=== PATIENT | male | born 1995 | race Asian ===

== ENCOUNTER 2018-09-12 14:11 | Emergency (ER) | payer OTHER ==
--- NOTE | 2018-09-12 14:51 | EDPHY ---
H & P Stated Complaint: 4 days HAHN, behind left ear Time Seen by Provider: 09/12/18 14:48 - Personal History Current Tetanus Diphtheria and Acellular Pertussis (TDAP): Yes - Medical/Surgical History Hx Asthma: No Hx Chronic Respiratory Disease: No Hx Diabetes: No Hx Cardiac Disease: No Hx Renal Disease: No Hx Cirrhosis: No Hx Alcoholism: No Hx HIV/AIDS: No Hx Splenectomy or Spleen Trauma: No Other PMH: none - Social History Smoking Status: Light smoker Constitutional: Initial Vital Signs Temperature (C) 36.4 C 09/12/18 14:15 Heart Rate 83 09/12/18 14:15 Respiratory Rate 20 09/12/18 14:15 Blood Pressure 128/88 H 09/12/18 14:15 O2 Sat (%) 100 09/12/18 14:15 O2 Delivery Mode Room Air O2 (L/minute) 2 Allergies/Adverse Reactions: cephalexin Allergy (Verified 09/12/18 14:18) Home Medications: Medication Instructions Recorded NK [No Known Home Meds] 09/12/18 Medical Decision Making - Diagnostics Imaging Results: Imaging Impressions Head CT 09/12/18 14:53 Impression: Normal CT of the head. Specifically, negative for mass or intracranial hemorrhage. Results called to Robert Vera MD on 09/12/2018 at 15:52. Imaging: Discussed imaging studies w/ freight caller Radiologist, I viewed and interpreted images myself ED Course/Re-evaluation: CHIEF COMPLAINT: Headache HISTORY OF PRESENT ILLNESS: The patient is a 23 y/o male with a history of headaches complaining of a headache behind his left ear for 4 days. He normally gets headaches for 1 -2 days. Starting 4 days ago he developed a worse than normal headache that "comes every 5 seconds". As his symptoms have not alleviated, he decided to present to the emergency department. No fever, body aches, lightheadedness, chest pain, heart palpitations, shortness of breath, cough, abdominal pain, urinary or bowel complaints, numbness, paresthesias. REVIEW OF SYSTEMS: A 10 point review of systems was performed and is negative with the exception of the elements mentioned in the history of present illness. PHYSICAL EXAM: HR, BP, O2 Sat, RR. Temp noted General Appearance: Clutching left ear, alert, well hydrated, appropriate, and non-toxic appearing. Head: Atraumatic without scalp tenderness or obvious injury Eyes: Pupils equal, round, reactive to light and accommodation, EOMI, no trauma , no injection. Ears: Clear bilaterally, no perforation, normal landmarks Nose: Atraumatic, no rhinorrhea, clear. Throat: There is no erythema or exudates, no lesions, normal tonsils, mucus membranes moist. Neck: Supple, 2+ carotid upstroke, nontender, no lymphadenopathy. Respiratory: No retractions, no distress, no wheezes, and no accessory muscle use. Lungs are clear to auscultation bilaterally. Cardiovascular: Regular rate and rhythm, no murmurs, rubs, or gallops. Bilateral carotid, radial, dorsalis pedis, and posterior tibial pulses intact. Good capillary refill all extremities. Gastrointestinal: Abdomen is soft, nontender, non-distended, no masses, no rebound, no guarding, no peritoneal signs. Musculoskeletal: Normal active ROM of all extremities, atraumatic. Neurological: Alert, appropriate, and interactive. The patient has normal DTRs and non-focal cranial nerves, motor, sensory, and cerebellar exam. Skin: No rashes, good turgor, no nodules on palpation. Past medical history: Headaches Past surgical history: Denies Family history: Denies Social history: Friend at bedside, student at , originally from [place] DIAGNOSTICS/PROCEDURES/CRITICAL CARE TIME: Head CT: No acute findings. DIFFERENTIAL DIAGNOSIS: The differential diagnosis for the patient's headache included but was not limited to subarachnoid hemorrhage, migraine headache, tension headache and infectious causes such as meningitis, pharyngitis and sinusitis. MEDICAL DECISION MAKING: The patient is a 23 y/o male with a history of headaches presenting with a worse than normal headache behind his left ear for 4 days. He normally gets headaches for 1 -2 days. The headache today "comes every 5 seconds". On exam he is clutching his left ear. The headache today appears to be a cluster headache. Labs and head CT ordered; Migraine cocktail and 4L supplemental O2 administered. 1536: Reassessed patient after medication. He just received the medication, but his headache is mildly improving after supplemental oxygen. Head CT still pending. 1553: I spoke with Dr. Witt, radiologist, regarding patients head CT. There are no acute findings. 1646: Reassessed patient and discussed imaging findings. His headache is almost completely resolved, I have advised him to follow up with a neurologist. Return precautions provided; patient is comfortable with this plan. - Data Points Laboratory Results: 09/12/18 15:42 POC Hgb 18.0 gm/dL H gm/dL (13.7-17.5) POC Hct 53 % H % (40-51) POC Sodium 143 mEq/L mEq/L (135-145) POC Potassium 3.7 mEq/L mEq/L (3.3-5.0) POC Chloride 106 mEq/L mEq/L (97-110) POC Total CO2 22 mEq/L mEq/L (22-31) POC BUN 11 mg/dL mg/dL (7-23) POC Creatinine 1.0 mg/dL mg/dL (0.7-1.3) POC Glucose 96 mg/dL mg/dL (70-100) Medications Given: Discontinued Medications Dexamethasone (Decadron Injection) 10 mg IVP EDNOW ONE Stop: 09/12/18 14:53 Last Admin: 09/12/18 15:31 Dose: 10 mg Ketorolac Tromethamine (Toradol) 30 mg IVP EDNOW ONE Stop: 09/12/18 14:53 Last Admin: 09/12/18 15:30 Dose: 30 mg Metoclopramide HCl (Reglan Injection) 10 mg IVP EDNOW ONE Stop: 09/12/18 14:53 Last Admin: 09/12/18 15:29 Dose: 10 mg Point of Care Test Results: Chemistry 09/12/18 15:42 POC Sodium 143 mEq/L mEq/L (135-145) POC Potassium 3.7 mEq/L mEq/L (3.3-5.0) POC Chloride 106 mEq/L mEq/L (97-110) POC Total CO2 22 mEq/L mEq/L (22-31) POC BUN 11 mg/dL mg/dL (7-23) POC Creatinine 1.0 mg/dL mg/dL (0.7-1.3) POC Glucose 96 mg/dL mg/dL (70-100) ISTAT H&H 09/12/18 15:42 POC Hgb 18.0 gm/dL H gm/dL (13.7-17.5) POC Hct 53 % H % (40-51) Departure - Departure Disposition: Home, Routine, Self-Care Clinical Impression: Cluster headache Qualifiers: Headache chronicity pattern: unspecified pattern Intractability: intractable Qualified Code(s): G44.001 - Cluster headache syndrome, unspecified, intractable Condition: Good Instructions: Cluster Headache (ED), Acute Headache (ED) Additional Instructions: 1. Follow-up with your primary care physician within 72 hours. 2. Return to the emergency department immediately for recurrence of headache, nausea, vomiting, numbness, weakness, neck pain, fever or other concerns. 3. Use Tylenol and/or ibuprofen as directed. 4. Follow-up with a neurologist within the next week. Referrals: [facility] [Clinic] - As per Instructions Corby Hoskins MD [Medical Doctor] - As per Instructions Report Scribed for: Robert Vera Report Scribed by: Kitty Jackson Date of Report: 09/12/18 Time of Report: 15:01
[2018-09-12] MEDS ORDERED: KETOROLAC 30 MG/1 ML SDV IVP ONE (14:52)
[2018-09-12] MEDS ORDERED: DEXAMETHASONE 10 MG/ML VIAL IVP ONE (14:52)
[2018-09-12] MEDS ORDERED: METOCLOPRAMIDE 10 MG/2 ML VIAL IVP ONE (14:52)
[2018-09-12 16:57] VITALS: BP 152/77
== END 2018-09-12 16:58 | disposition home or self-care (01) ==
DX: G44.001 Cluster headache syndrome, unspecified, intractable (principal)
CPT/HCPCS: 82435-PO; 82565-PO; 82947-PO; 84132-PO; 84295-PO; 84520-PO; 85014-ER; 96374; J1100; J1885; J2765